=== PATIENT | female | born 1955 | race Caucasian/White ===

== ENCOUNTER 2021-11-26 07:26 | Inpatient (IN) | payer MEDICARE ==
[2021-11-26] MEDS ORDERED: Lactated Ringers 1,000 ML IV SCH (07:30)
[2021-11-26] MEDS ORDERED: Nozin Nasal Sanitizer NASBOTH SCH (07:30)
[2021-11-26] MEDS ORDERED: Clindamycin Phosphate 900 MG in Sodium Chloride 0.9% 100 ML IV ONE (08:00)
[2021-11-26] MEDS ORDERED: TRANEXAMIC ACID IV ONE (08:45)
[2021-11-26] MEDS ORDERED: SODIUM CHLORIDE 0.9% IV ONE (08:45)
[2021-11-26] MEDS ORDERED: Albuterol/Ipratropium 3.0-0.5 MG/3 ML Neb Soln NEB ONE (09:31)
[2021-11-26] MEDS ORDERED: Midazolam 1 MG/ML 2 ML SDV ONE ×2 (10:09→12:52)
[2021-11-26] MEDS ORDERED: fentaNYL 100 MCG/2 ML SDV ONE (10:09)
[2021-11-26] MEDS ORDERED: Propofol 200 MG/20 ML SDV ONE (10:09)
[2021-11-26] MEDS ORDERED: Sodium Chloride 0.9% 10 ML ONE (12:20)
[2021-11-26] MEDS ORDERED: Phenylephrine 1% 10 MG/ML SDV ONE (12:20)
[2021-11-26] MEDS ORDERED: Lactated Ringers 1,000 ML ONE (12:38)
[2021-11-26] MEDS ORDERED: traMADol 50 MG Tab PO PRN (13:37)
[2021-11-26] MEDS ORDERED: Ondansetron 4 MG/2 ML SDV IVPUSH PRN (13:37)
[2021-11-26] MEDS ORDERED: Ondansetron 4 MG Tab.DIS PO PRN (13:37)
[2021-11-26] MEDS ORDERED: Amitriptyline 25 MG Tab PO PRN (13:43)
[2021-11-26] MEDS ORDERED: ceFAZolin 1 GM in Sodium Chloride 0.9% 50 ML IV SCH (13:45)
[2021-11-26] MEDS ORDERED: Glucagon,Human Recombinant 1 MG Vial IM PRN (14:22)
[2021-11-26] MEDS ORDERED: 50% Dextrose in Water 50 ML Syringe IVPUSH PRN (14:22)
[2021-11-26] MEDS ORDERED: HYDROmorphone 0.5 MG/0.5 ML Syringe IVPUSH PRN (15:29)
[2021-11-26] MEDS ORDERED: Albuterol/Ipratropium 3.0-0.5 MG/3 ML Neb Soln NEB PRN (15:38)
[2021-11-26] MEDS: Acetaminophen 325 MG Tab PO SCH ×2 (16:18→21:56)
[2021-11-26] MEDS ORDERED: metFORMIN 500 MG Tab PO SCH ×2 (17:00)
[2021-11-26] MEDS: Insulin Lispro 100 Unit/ML 3 ML KwikPen SUBCUT SCH ×2 (17:31→21:28)
[2021-11-26] MEDS: metFORMIN 500 MG Tab PO SCH (17:34)
[2021-11-26] MEDS: Sodium Chloride 0.9% 1,000 ML IV SCH (17:36)
[2021-11-26] MEDS: oxyCODONE 5 MG Tab PO PRN ×2 (18:36→21:55)
[2021-11-26] MEDS: Nozin Nasal Sanitizer NASBOTH SCH (20:23)
[2021-11-26] MEDS: Pregabalin 100 MG Cap PO SCH (20:23)
[2021-11-26] MEDS: Clindamycin Phosphate 900 MG in Sodium Chloride 0.9% 100 ML IV SCH (20:23)
[2021-11-26] MEDS: Docusate Sodium 100 MG Cap PO SCH (20:24)
[2021-11-26] MEDS: Gabapentin 300 MG Cap PO SCH (20:24)
[2021-11-26] MEDS: Celecoxib 200 MG Cap PO SCH (20:24)
[2021-11-26] MEDS ORDERED: Pregabalin 100 MG Cap PO SCH (21:00)
[2021-11-26] MEDS: Insulin Glargine,Human Rec. Analog 100 Units/ML 3 ML Pen SUBCUT SCH (21:56)
[2021-11-27] MEDS: Sodium Chloride 0.9% 1,000 ML IV SCH ×2 (02:10→10:18)
[2021-11-27] MEDS: Acetaminophen 325 MG Tab PO SCH ×4 (03:59→21:34)
[2021-11-27] MEDS: oxyCODONE 5 MG Tab PO PRN ×4 (03:59→21:34)
[2021-11-27] MEDS: Clindamycin Phosphate 900 MG in Sodium Chloride 0.9% 100 ML IV SCH ×2 (03:59→12:28)
[2021-11-27] MEDS: BREO ELLIPTA INH SCH (07:03)
[2021-11-27] MEDS: Pantoprazole 40 MG Tab.CR PO SCH (07:52)
[2021-11-27] MEDS: metFORMIN 500 MG Tab PO SCH ×2 (07:53→17:35)
[2021-11-27] MEDS: Insulin Lispro 100 Unit/ML 3 ML KwikPen SUBCUT SCH ×4 (07:54→21:17)
[2021-11-27] MEDS ORDERED: metFORMIN 500 MG Tab PO SCH (08:00)
[2021-11-27] MEDS: Nozin Nasal Sanitizer NASBOTH SCH ×2 (08:48→20:51)
[2021-11-27] MEDS: Celecoxib 200 MG Cap PO SCH ×2 (08:48→20:51)
[2021-11-27] MEDS: Chlorthalidone 25 MG Tab PO SCH (08:49)
[2021-11-27] MEDS: Docusate Sodium 100 MG Cap PO SCH ×2 (08:49→20:52)
[2021-11-27] MEDS: DULoxetine 20 MG Cap PO SCH (08:50)
[2021-11-27] MEDS: Fenofibrate,Micronized 67 MG Cap PO SCH (08:50)
[2021-11-27] MEDS: Escitalopram 10 MG Tab PO SCH (08:51)
[2021-11-27] MEDS: atorvaSTATin 10 MG Tab PO SCH (08:52)
[2021-11-27] MEDS: Cyanocobalamin (Vitamin B12) 1,000 MCG Tab PO SCH (08:53)
[2021-11-27] MEDS: Enoxaparin 30 MG/0.3 ML Syringe SUBCUT SCH (08:53)
[2021-11-27] MEDS: Pregabalin 100 MG Cap PO SCH ×2 (08:59→20:55)
[2021-11-27] MEDS ORDERED: Non-Formulary Medication 1 Each (Simvastatin [Simvastatin] 20 MG) PO SCH (09:00)
[2021-11-27] MEDS ORDERED: atorvaSTATin 10 MG Tab PO SCH (09:00)
[2021-11-27] MEDS ORDERED: Non-Formulary Medication 1 Each (Simvastatin [Simvastatin] 20 MG Tablet) PO SCH (09:00)
[2021-11-27] MEDS ORDERED: Non-Formulary Medication 1 Each (Cyanocobalamin (Vitamin B-12) [Vitamin B-12] 1,000 MCG Ta PO SCH (09:00)
[2021-11-27] MEDS ORDERED: Non-Formulary Medication 1 Each (Fenofibrate Nanocrystallized [Fenofibrate] 145 MG Tablet) PO SCH (09:00)
[2021-11-27] MEDS ORDERED: Non-Formulary Medication 1 Each (Esomeprazole [Nexium] 40 MG Cap) PO SCH (09:00)
[2021-11-27] MEDS ORDERED: Non-Formulary Medication 1 Each (Fluticasone/Vilanterol 1 EACH Each) IH SCH (09:00)
[2021-11-27] MEDS ORDERED: Hydrochlorothiazide 12.5 MG Cap PO SCH (09:00)
[2021-11-27] MEDS ORDERED: Non-Formulary Medication 1 Each (Sitagliptin [Januvia] 50 MG Tablet) PO SCH (09:00)
[2021-11-27] MEDS ORDERED: Losartan 25 MG Tab PO SCH (09:00)
[2021-11-27] MEDS: Gabapentin 300 MG Cap PO SCH (20:52)
[2021-11-27] MEDS: Insulin Glargine,Human Rec. Analog 100 Units/ML 3 ML Pen SUBCUT SCH (21:35)
[2021-11-28] MEDS: Acetaminophen 325 MG Tab PO SCH ×4 (03:26→22:20)
[2021-11-28] MEDS: BREO ELLIPTA INH SCH (07:19)
[2021-11-28] MEDS: Insulin Lispro 100 Unit/ML 3 ML KwikPen SUBCUT SCH ×4 (07:44→21:29)
[2021-11-28] MEDS: metFORMIN 500 MG Tab PO SCH ×2 (08:03→17:00)
[2021-11-28] MEDS: oxyCODONE 5 MG Tab PO PRN ×2 (08:03→23:52)
[2021-11-28] MEDS: Nozin Nasal Sanitizer NASBOTH SCH ×2 (08:04→21:28)
[2021-11-28] MEDS: Celecoxib 200 MG Cap PO SCH ×2 (08:04→21:28)
[2021-11-28] MEDS: Pantoprazole 40 MG Tab.CR PO SCH (08:04)
[2021-11-28] MEDS: DULoxetine 20 MG Cap PO SCH (08:05)
[2021-11-28] MEDS: Fenofibrate,Micronized 67 MG Cap PO SCH (08:05)
[2021-11-28] MEDS: Escitalopram 10 MG Tab PO SCH (08:05)
[2021-11-28] MEDS: Docusate Sodium 100 MG Cap PO SCH ×2 (08:05→21:29)
[2021-11-28] MEDS: Cyanocobalamin (Vitamin B12) 1,000 MCG Tab PO SCH (08:06)
[2021-11-28] MEDS: atorvaSTATin 10 MG Tab PO SCH (08:06)
[2021-11-28] MEDS: Enoxaparin 30 MG/0.3 ML Syringe SUBCUT SCH (08:06)
[2021-11-28] MEDS: Pregabalin 100 MG Cap PO SCH ×2 (08:08→21:35)
[2021-11-28] MEDS: Chlorthalidone 25 MG Tab PO SCH (08:13)
[2021-11-28] MEDS: Gabapentin 300 MG Cap PO SCH (21:29)
[2021-11-28] MEDS: Insulin Glargine,Human Rec. Analog 100 Units/ML 3 ML Pen SUBCUT SCH (21:30)
[2021-11-29] MEDS: Acetaminophen 325 MG Tab PO SCH (04:03)
[2021-11-29] MEDS: BREO ELLIPTA INH SCH (07:08)
[2021-11-29] MEDS: Insulin Lispro 100 Unit/ML 3 ML KwikPen SUBCUT SCH (07:23)
[2021-11-29] MEDS: metFORMIN 500 MG Tab PO SCH (08:19)
[2021-11-29] MEDS: Nozin Nasal Sanitizer NASBOTH SCH (08:19)
[2021-11-29] MEDS: Docusate Sodium 100 MG Cap PO SCH (08:20)
[2021-11-29] MEDS: Pantoprazole 40 MG Tab.CR PO SCH (08:20)
[2021-11-29] MEDS: Chlorthalidone 25 MG Tab PO SCH (08:20)
[2021-11-29] MEDS: Cyanocobalamin (Vitamin B12) 1,000 MCG Tab PO SCH (08:20)
[2021-11-29] MEDS: Escitalopram 10 MG Tab PO SCH (08:22)
[2021-11-29] MEDS: atorvaSTATin 10 MG Tab PO SCH (08:22)
[2021-11-29] MEDS: DULoxetine 20 MG Cap PO SCH (08:22)
[2021-11-29] MEDS: Celecoxib 200 MG Cap PO SCH (08:22)
[2021-11-29] MEDS: Fenofibrate,Micronized 67 MG Cap PO SCH (08:22)
[2021-11-29] MEDS: Enoxaparin 30 MG/0.3 ML Syringe SUBCUT SCH (08:22)
[2021-11-29] MEDS: Pregabalin 100 MG Cap PO SCH (08:24)
== END 2021-11-29 10:21 | disposition home health service (06) | DRG 470 ==
LOC: JP.SDS 07:26 → JP.MS 13:37 → JP.SDS 11-27 12:22 → JP.MS 11-27 12:22
PROVIDERS: ADMIT Specialist; ATTEND Specialist
PROC: 0SRB01Z Replacement of Left Hip Joint with Metal Synthetic Substitute, Open Approach (ICD-10-PCS; principal; 2021-11-26)
DX: M16.12 Unilateral primary osteoarthritis, left hip (principal); C34.91 Malignant neoplasm of unspecified part of right bronchus or lung; N18.4 Chronic kidney disease, stage 4 (severe); D64.89 Other specified anemias; J44.9 Chronic obstructive pulmonary disease, unspecified; E11.42 Type 2 diabetes mellitus with diabetic polyneuropathy; I12.9 Hypertensive chronic kidney disease with stage 1 through stage 4 chronic kidney disease, or unspecified chronic kidney disease; E11.22 Type 2 diabetes mellitus with diabetic chronic kidney disease; E78.5 Hyperlipidemia, unspecified; G43.909 Migraine, unspecified, not intractable, without status migrainosus; K57.90 Diverticulosis of intestine, part unspecified, without perforation or abscess without bleeding; Z90.710 Acquired absence of both cervix and uterus; Z90.49 Acquired absence of other specified parts of digestive tract; Z79.82 Long term (current) use of aspirin; Z79.899 Other long term (current) drug therapy; Z88.0 Allergy status to penicillin; Z88.5 Allergy status to narcotic agent; Z91.010 Allergy to peanuts; Z87.891 Personal history of nicotine dependence
CPT/HCPCS: 36415; 71045; 71045-26; 72170; 72170-26; 80053; 82947; 85027; 94640; 97110-GP; 97116-GP; 97161-GP; 97165-GO; 97530-GP; 97535-GP; A9270-GY; C1776; J1650; J1815-GY; J2250; J2370; J2704; J3010; J3490; J7030; J7120; J7620-GY